=== PATIENT | female | born 1955 | race Caucasian/White ===

== ENCOUNTER → 2020-02-12 | Outpatient (CLI) | payer MEDICARE ==
--- NOTE | 2020-02-12 15:19 | KCIC ---
RIBS RIGHT History: Right anterior rib pain and contusion after a fall 1 week ago Comparison: Chest radiograph November 23, 2019 Findings: 4 views of the right ribs are submitted. The entirety of the left chest was not included. There is again reverse S-shaped curvature of the thoracic spine. There is atherosclerotic calcification near aortic arch. There has been cholecystectomy. No right pneumothorax or dependent pleural fluid is identified. There is some degenerative change of the right glenohumeral articulation. No displaced right rib fracture is identified by radiographs. Impression: 1. No displaced right rib fracture is identified by radiographs. Electronically signed by: Hernandez Urbano MD (02/12/2020 3:16 PM) [facility]
== END | disposition home or self-care (01) ==
LOC: KCIC 10:23
PROVIDERS: ATTEND Nurse Practitioner Family
DX: S20.211A Contusion of right front wall of thorax, initial encounter (principal); W19.XXXA Unspecified fall, initial encounter; Y93.89 Activity, other specified; Y92.89 Other specified places as the place of occurrence of the external cause; Y99.8 Other external cause status; M43.8X4 Other specified deforming dorsopathies, thoracic region; I70.0 Atherosclerosis of aorta; M19.011 Primary osteoarthritis, right shoulder
CPT/HCPCS: 71100

== ENCOUNTER → 2020-03-13 | Outpatient (CLI) | payer MEDICARE ==
--- NOTE | 2020-03-13 09:57 | RAD ---
EXAM: CT Chest without IV contrast INDICATION: Reason: 2-3 mm pulmonary nodule in 2015 / Spl. Instructions: / History: TECHNIQUE: Multi-detector row CT images were acquired from the thoracic inlet through the upper abdomen without the use of IV contrast. Sagittal and coronal images were acquired from the transaxial data. All CT scans performed at this facility utilize dose optimization techniques as appropriate to the exam, including the following: Automated exposure control and adjustment of the mA and/or KV according to patient size (this includes techniques or standardized protocols for targeted exams where dose is indication/reason for exam). COMPARISON: None FINDINGS: The absence of IV contrast limits evaluation of soft tissue pathology. CARDIOVASCULAR: Normal caliber thoracic aorta. Multivessel coronary calcifications. Normal heart size. MEDIASTINUM & CALIXTO: No adenopathy or masses. LUNGS: Centrilobular emphysema is present. 3 mm posterior right upper lobe pulmonary nodule (image 80 of series 3). 2 mm left lower lobe pulmonary nodule (image 142 of series 3). Mild parenchymal scarring in the medial right middle lobe. PLEURAL SPACE: No pleural effusions or pneumothorax. OSSEOUS & SOFT TISSUE: Old anterolateral right fifth and sixth rib fractures. Mild rightward convexity scoliotic curvature of the lower thoracic spine. ABDOMEN: Included upper abdomen shows postoperative changes in the upper gastrointestinal system suggesting previous gastric bypass, and cholecystectomy. IMPRESSION: Sub-5 mm pulmonary nodules in the posterior right upper lobe and in the left lower lobe. No findings suspicious for pulmonary malignancy. Unless the patient is at high risk for lung cancer, additional follow-up of these nodules may not be necessary. However, patient does have centrilobular pattern emphysema. Consider enrollment in a [place] lung cancer screening program if clinically appropriate. Electronically signed by: Madison Gann MD (03/13/2020 9:54 AM) [id number]
== END ==
LOC: CT 09:23
DX: J43.2 Centrilobular emphysema (principal); M35.00 Sjogren syndrome, unspecified; R91.8 Other nonspecific abnormal finding of lung field; Z87.898 Personal history of other specified conditions; Z79.899 Other long term (current) drug therapy
CPT/HCPCS: 71250

== ENCOUNTER → 2020-04-21 | Outpatient (CLI) | payer MEDICARE ==
--- NOTE | 2020-04-21 14:28 | KCIC ---
EXAM: Bilateral digital screening mammogram with tomosynthesis. HISTORY: 65-year-old female presents for screening mammography. TECHNIQUE: Full-field digital craniocaudal and mediolateral oblique 2D and 3D tomosynthesis images of both breasts are obtained for evaluation. Computer aided detection with TelepathD software version 9.3 was applied. COMPARISON: 11/16/2018 BREAST PARENCHYMAL DENSITY: Level A - Mostly fat. FINDINGS: There is no new suspicious mass, microcalcification or region of architectural distortion. There are findings consistent with reduction mammoplasty surgery. There are few benign calcifications. There is a stable small suspected benign oil cyst within the medial left breast. IMPRESSION: BI-RADS Category 2: Benign finding(s). RECOMMENDATION: Annual mammography is recommended. If your mammogram demonstrates that you have dense breast tissue, which could hide abnormalities, and if you have other risk factors for breast cancer that have been identified, you might benefit from supplemental screening tests that may be suggested by your ordering physician. Dense breast tissue, in and of itself, is a relatively common condition. This information is not provided to cause undue concern, but rather to raise your awareness and to promote discussion with your physician regarding the presence of other risk factors, in addition to dense breast tissue. A report of your mammography results will be sent to you and your physician. You should contact your physician if you have any questions or concerns regarding this report. Mammography is a sensitive method for finding small breast cancers, but it does not detect them all and is not a substitute for careful clinical examination. A negative mammogram does not negate a clinically suspicious finding and should not result in delay in biopsying a clinically suspicious abnormality. PQRS compliance statement - Patient information was entered into a reminder system with a target due date for the next mammogram. "Our facility is accredited by the [employer] Mammography Program." Electronically signed by: Nita Early MD (04/21/2020 2:25 PM) [email or web address]
== END | disposition home or self-care (01) ==
LOC: KCIC MAMMO 10:40
PROVIDERS: ATTEND Nurse Practitioner Family
DX: Z12.31 Encounter for screening mammogram for malignant neoplasm of breast (principal); N64.89 Other specified disorders of breast
CPT/HCPCS: 77063; 77067

== ENCOUNTER → 2020-09-04 | Outpatient (CLI) | payer MEDICARE ==
--- NOTE | 2020-09-04 17:31 | KCIC ---
EXAM: CT CHEST WITHOUT CONTRAST HISTORY: Pulmonary nodule COMPARISON: CT chest 03/13/2020 TECHNIQUE: Helical CT of the chest performed without contrast. Coronal and sagittal reformats were o btained. One or more of the following individualized dose reduction techniques were utilized for this examinat ion: 1. Automated exposure control 2. Adjustment of the mA and/or kV according to patient size 3. Use of iterative reconstruction technique. FINDINGS: Thyroid gland and thoracic inlet: Small calcification in the right thyroid lobe. Heart and great vessels: Heart is normal in size. There are coronary artery calcifications. Thoracic aorta is normal caliber mild calcified atherosclerosis. Mediastinum and yrn: No mediastinal or hilar lymphadenopathy. Lungs and pleura: A 6 mm groundglass nodule in the anterior right upper lobe is unchanged (image 45, series 6). 3 mm pulmonary nodule in the posterior right upper lobe is unchanged (image 44, series 6). There is calcified granuloma in the left lower lobe. Additional 2 mm pulmonary nodule in the left lo wer lobe is unchanged (image 90, series 6). No new pulmonary nodule. Mild paraseptal and centrilobula r emphysema. Unchanged mild scarring or atelectasis in the medial right middle lobe. Chest wall and axillae: No axillary lymphadenopathy. Chest wall is unremarkable. Upper abdomen: Surgical changes of gastric bypass and cholecystectomy. Bones: Moderate thoracic scoliosis. No acute osseous abnormality. IMPRESSION: 1. Unchanged 6 mm groundglass nodule in the anterior right upper lobe and 2-3 mm pulmonary nodules i n the posterior right upper lobe and left lower lobe. Optional follow-up CT could be obtained in 2020 ([address]) to ensure stability in a high risk patient. 2. Unchanged mild emphysema. 3. Coronary artery calcifications. Electronically signed by: Laura Zamorano MD (09/04/2020 5:29 PM) [id number]
== END ==
LOC: KCIC CT 10:10
PROVIDERS: ATTEND Internal Medicine Pulmonary Disease
DX: R91.1 Solitary pulmonary nodule (principal); I25.10 Atherosclerotic heart disease of native coronary artery without angina pectoris; J43.9 Emphysema, unspecified; Z90.49 Acquired absence of other specified parts of digestive tract; Z87.891 Personal history of nicotine dependence
CPT/HCPCS: 71250

== ENCOUNTER → 2020-11-06 | Outpatient (CLI) | payer MEDICARE ==
--- NOTE | 2020-11-06 16:32 | RAD ---
US HEAD/NECK SOFT TISSUE History:Reason: Adenopathy; Pain along Bilateral Jaw lines per pt / Spl. Instructions: / History: Comparison: None Technique: Sonographic examination of the bilateral submandibular soft tissues Findings: Small benign-appearing lymph nodes within the submandibular region. No mass or fluid collection. Impression: 1. No ultrasound evidence of abnormality within the region of the patient's palpable concern. Electronically signed by: Naveed Quintero DO (11/06/2020 4:30 PM) [id number]
== END ==
LOC: US 10:23
PROVIDERS: ATTEND Nurse Practitioner Family
DX: R59.1 Generalized enlarged lymph nodes (principal)
CPT/HCPCS: 76536

== ENCOUNTER → 2021-03-02 | Outpatient (CLI) | payer MEDICARE ==
[~2021-03-02] MED LIST: IOHEXOL 240 MG/ML 50ML VIAL. PO ONE; IOHEXOL 300 MG/ML 100ML VIAL. IV ONE
--- NOTE | 2021-03-02 14:34 | RAD ---
EXAM: CT Abdomen with IV contrast CLINICAL HISTORY: Reason: LUQ ABD PAIN / Spl. Instructions: omni 300 75ml omni 240 50ml / History: . COMPARISON: none TECHNIQUE: Helical CT of the abdomen and pelvis was performed following the administration of IV cont rast. Axial, coronal and sagittal reformatted images were generated. ---PQRS compliance statement - One or more of the following individualized dose reduction techniques were utilized for this study: 1. Automated exposure control 2. Adjustment of the mA and/or kV according to patient size 3. Use of iterative reconstruction technique--- FINDINGS: Lower chest: Lung bases are clear. Abdomen: Liver and biliary system: No focal liver lesion. Cholecystectomy clips are seen. No biliary ductal d ilatation. Spleen: Unremarkable Pancreas: Unremarkable Adrenal glands: Unremarkable Kidneys: Symmetric nephrograms. Lymph nodes/retroperitoneum: No abdominal lymphadenopathy. Vessels: Dense aortic calcifications in the infrarenal aorta. Bowel/Peritoneal cavity: Colonic diverticula are seen. No acute diverticulitis. Visualized small and large bowel are normal in caliber. Changes of gastric bypass are seen. No associated abnormal bowel d ilatation. Appendix is normal. No abdominal ascites. Abdominal wall: Trace fat-containing periumbilical hernia is seen. Bones: Degenerative changes of the spine are seen. [Curvature of the lumbar spine. Curvature thoracic spine. IMPRESSION: 1. Changes of gastric bypass without associated bowel obstruction or focal abnormality. 2. Colonic diverticulosis is partially profiled without evidence for acute diverticulitis. 3. Trace fat-containing periumbilical hernia is seen. Electronically signed by: Donald Cutler MD (03/02/2021 2:32 PM) [id number]
== END ==
LOC: CT 08:40
PROVIDERS: ATTEND Nurse Practitioner Family
DX: K57.30 Diverticulosis of large intestine without perforation or abscess without bleeding (principal); I70.0 Atherosclerosis of aorta; M43.8X5 Other specified deforming dorsopathies, thoracolumbar region; M47.816 Spondylosis without myelopathy or radiculopathy, lumbar region; Z90.49 Acquired absence of other specified parts of digestive tract
CPT/HCPCS: 74160; Q9966; Q9967

== ENCOUNTER → 2021-03-29 | Outpatient (CLI) | payer MEDICARE ==
--- NOTE | 2021-03-29 09:00 | KCIC ---
EXAM: Chest CT without intravenous contrast. HISTORY: Pulmonary nodules. Cigarette smoking. TECHNIQUE: Computed tomographic images of the chest were obtained without contrast. Multiplanar refor matting was performed. *One or more of the following individualized dose reduction techniques were utilized for this examina tion: 1. Automated exposure control. 2. Adjustment of the mA and/or kV according to patient size. 3. Use of iterative reconstruction technique. COMPARISON: 09/04/2020 and 03/13/2020. FINDINGS: The heart is normal in size. The aorta is normal in caliber. There is calcified atheroscler otic plaque involving the coronary arteries. There is a right thyroid calcification without convincin g nodule. There are benign-appearing mediastinal and hilar lymph nodes. There is no pneumothorax or pleural effusion. There is a 6 mm groundglass nodular opacity within the anterior right upper lobe (series 6, image 56). There is a 5 mm nodule within the posterior right upp er lobe (series 6, image 60). There is a 2 mm nodule within the right upper lobe (series 6, image 68) . The previously described 2 mm nodule within the left lower lobe is not conspicuous on the current e xam. There is scarring or atelectasis within the anterior medial right middle lobe along the horizontal fi ssure. There is a calcified granuloma within the left lower lobe. There are postoperative changes inv olving the stomach. The gallbladder is surgically absent. There are degenerative changes involving th e spine. There is no acute or suspicious osseous lesion. IMPRESSION: 1. Right-sided pulmonary nodules, the largest of which is a 6 mm groundglass nodule within the right upper lobe. These are noted partially changed compared to the prior exam, allowing for differences in slice position and volume averaging. Follow-up can be performed in one year to confirm longer-term s tability. 2. Mild emphysema. Electronically signed by: Nita Early MD (03/29/2021 8:58 AM) [id number]
== END ==
LOC: KCIC CT 08:08
PROVIDERS: ATTEND Internal Medicine Critical Care Medicine
DX: R91.8 Other nonspecific abnormal finding of lung field (principal); J84.10 Pulmonary fibrosis, unspecified; J43.9 Emphysema, unspecified; I25.10 Atherosclerotic heart disease of native coronary artery without angina pectoris; M47.814 Spondylosis without myelopathy or radiculopathy, thoracic region; Z98.890 Other specified postprocedural states
CPT/HCPCS: 71250

== ENCOUNTER 2021-04-21 20:14 | Emergency (ER) | payer MEDICARE ==
[~2021-04-21] VITALS: Ht 154.9 cm; Wt 98.6 kg
[2021-04-21] MEDS ORDERED: ASPIRIN CHEWABLE 81 MG TABLET. PO ONE (23:30)
[2021-04-21] MEDS ORDERED: fentaNYL PF VIAL 100 MCG/2 ML VIAL IVP ONE (23:30)
--- NOTE | 2021-04-21 23:32 | ED.ADGEN ---
Past Medical History Past Surgical History: Cholecystectomy, Gastric Bypass, Hysterectomy, Tonsillectomy, Other Additional Past Surgical Histo: BREAST REDUCTION General Adult EDM: Chief Complaint: CHEST PAIN HPI: HPI: Patient is a 66 year old female coming from a sleep study in this hospital for left-sided sharp chest pain. Patient states the pain 3 to 4 days ago, denies any trauma or heavy lifting. Patient describes the pain as sharp and is worse with taking a deep breath, movement, and palpation. Patient has had similar pain in the past and her primary care provider diagnosed her with costochondritis. Patient has a history of Sjogren's in fibromyalgia, does not take anything for pain. Patient has any past cardiac history, dyspnea on exertion, or lower extremity edema. Patient has had both of her COVID-19 vaccines and her booster. Review of Systems: Review of Systems: All other systems within normal limits except for as noted in the HPI Current Medications: Current Medications Medications (Trade) Dose Ordered Sig/Brennan Start Time Stop Time Status Last Admin Dose Admin Aspirin (Aspirin Chewable) 324 mg 1X ONCE 04/21/21 23:30 04/21/21 23:33 DC 04/22/21 00:11 324 MG Fentanyl Citrate (Fentanyl 2ml Vial) 75 mcg 1X ONCE 04/21/21 23:30 04/21/21 23:33 DC 04/22/21 00:12 75 MCG Allergies: Allergies: Allergies Coded Allergies Type Severity Reaction Last Updated Verified Sulfa (Sulfonamide Antibiotics) Allergy Intermediate 03/02/21 Yes Physical Exam: PE: Constitutional: Well developed, well nourished, no acute distress, non-toxic appearance. [] HENT: Normocephalic, atraumatic, bilateral external ears normal, nose normal. [] Eyes: PERRLA, conjunctiva normal, no discharge. [] Neck: No rigidity, supple, no stridor. [] Cardiovascular: Regular rate and rhythm, brisk cap refill. Chest pain reproducible palpation over left anterior mid chest wall, no crepitus or deformity. [] Lungs & Thorax: Non labored symmetric respirations, no tachypnea or respiratory distress [] Abdomen: Soft, nondistended. Skin: Warm, dry, no erythema, no rash. [] Back: Unremarkable Extremities: No deformities, range of motion grossly intact, no lower extremity edema [] Neurologic: Alert and oriented X 3, no focal deficits noted. [] Psychologic: Affect normal, judgement normal, mood normal. [] Current Patient Data: Labs: Laboratory Tests Test 04/22/21 00:06 White Blood Count 6.2 x10^3/uL (4.0-11.0) Red Blood Count 4.57 x10^6/uL (3.50-5.40) Hemoglobin 13.5 g/dL (12.0-15.5) Hematocrit 40.5 % (36.0-47.0) Mean Corpuscular Volume 89 fL (79-100) Mean Corpuscular Hemoglobin 29 pg (25-35) Mean Corpuscular Hemoglobin Concent 33 g/dL (31-37) Red Cell Distribution Width 13.1 % (11.5-14.5) Platelet Count 239 x10^3/uL (140-400) Neutrophils (%) (Auto) 63 % (31-73) Lymphocytes (%) (Auto) 25 % (24-48) Monocytes (%) (Auto) 9 % (0-9) Eosinophils (%) (Auto) 3 % (0-3) Basophils (%) (Auto) 1 % (0-3) Neutrophils # (Auto) 3.9 x10^3/uL (1.8-7.7) Lymphocytes # (Auto) 1.6 x10^3/uL (1.0-4.8) Monocytes # (Auto) 0.6 x10^3/uL (0.0-1.1) Eosinophils # (Auto) 0.2 x10^3/uL (0.0-0.7) Basophils # (Auto) 0.0 x10^3/uL (0.0-0.2) Sodium Level 139 mmol/L (136-145) Potassium Level 4.1 mmol/L (3.5-5.1) Chloride Level 104 mmol/L (98-107) Carbon Dioxide Level 32 mmol/L (21-32) Anion Gap 3 (6-14) L Blood Urea Nitrogen 10 mg/dL (7-20) Creatinine 0.8 mg/dL (0.6-1.0) Estimated GFR (Cockcroft-Gault) 72.2 BUN/Creatinine Ratio 13 (6-20) Glucose Level 95 mg/dL (70-99) Calcium Level 9.2 mg/dL (8.5-10.1) Total Bilirubin 0.3 mg/dL (0.2-1.0) Aspartate Amino Transferase (AST) 7 U/L (15-37) L Alanine Aminotransferase (ALT) 11 U/L (14-59) L Alkaline Phosphatase 116 U/L (46-116) Troponin I Quantitative < 0.017 ng/mL (0.000-0.055) LA-Ggb-O-Type Natriuretic Peptide 61 pg/mL (0-124) Total Protein 7.6 g/dL (6.4-8.2) Albumin 3.5 g/dL (3.4-5.0) Albumin/Globulin Ratio 0.9 (1.0-1.7) L Laboratory Tests 04/22/21 00:06 Laboratory Tests 04/22/21 00:06 Vital Signs: Vital Signs Date Time Temp Pulse Resp B/P (MAP) Pulse Ox O2 Delivery O2 Flow Rate FiO2 04/22/21 00:15 66 18 139/85 (103) 96 Room Air 04/21/21 20:40 97.9 97.9 EKG: EKG: [] Sinus rhythm, heart rate 80 bpm, left axis deviation, no ST elevation or depr ession Heart Score: C/O Chest Pain: Yes HEART Score for Chest Pain: HEART Score for Chest Pain Response (Comments) Value History Slighlty/Non-Suspicious 0 ECG Nonspecific Repolarizatio 1 Age >45 - < 65 1 Risk Factors 1 or 2 Risk Factors 1 Troponin < Normal Limit 0 Total 3 Risk Factors: Risk Factors: DM, Current or recent (<one month) smoker, HTN, HLP, family history of CAD, obesity. Risk Scores: Score 0 - 3: 2.5% MACE over next 6 weeks - Discharge Home Score 4 - 6: 20.3% MACE over next 6 weeks - Admit for Clinical Observation Score 7 - 10: 72.7% MACE over next 6 weeks - Early Invasive Strategies Radiology/Procedures: Radiology/Procedures: [facility] [address] [place] [address] IMAGING REPORT Signed PATIENT: CARA KELLOGG ACCOUNT: [id number] : 1955 LOCATION: ER AGE: 66 SEX: F EXAM STATUS: REG ER ORD. PHYSICIAN: PAKO CARVAJAL MD REASON: chest pain PROCEDURE: CHEST PA & LATERAL Chest, PA and Lateral: Technique: PA and lateral views of the chest were obtained. History: Chest pain. Comparison: None. Findings: The heart and pulmonary vasculature appear within normal limits. The lungs are clear. The pleural margins are clear. Impression: No acute chest process is seen. Electronically signed by: Yasir Stringer MD (04/21/2021 11:51 PM) [id number] DICTATED and SIGNED BY: YASIR STRINGER MD DATE: 04/21/21 [id number] [] Course & Med Decision Making: Course & Med Decision Making Pertinent Labs and Imaging studies reviewed. (See chart for details) [] Work-up unremarkable with undetectable troponin after 4 days of symptoms. History and physical exam consistent with costochondritis. She was getting prescribed Naprosyn but patient states she has a gastric bypass and cannot have NSAIDs. Haim Disclaimer: Haim Disclaimer: This electronic medical record was generated, in whole or in part, using a voice recognition dictation system. Departure Departure Impression: Primary Impression: Costochondral chest pain Disposition: 01 HOME / SELF CARE / HOMELESS Condition: STABLE Referrals: LORE SGEUNDO APRN (PCP) Patient Instructions: Chest Pain (Nonspecific), Costochondritis Scripts Hydrocodone Bit/Acetaminophen (HYDROCODONE-APAP 5-325 ) 1 Tab Tablet 1 TAB PO PRN Q6HRS PRN for PAIN for 3 Days, #12 TAB 0 Refills Prov: PAKO CARVAJAL MD 04/22/21 PAKO CARVAJAL MD Apr 21, 2021 23:32
--- NOTE | 2021-04-21 23:53 | RAD ---
Chest, PA and Lateral: Technique: PA and lateral views of the chest were obtained. History: Chest pain. Comparison: None. Findings: The heart and pulmonary vasculature appear within normal limits. The lungs are clear. The pleural ma rgins are clear. Impression: No acute chest process is seen. Electronically signed by: Yasir Stringer MD (04/21/2021 11:51 PM) [id number]
[2021-04-22 00:16] LABS: BASO % 1 % (0-3); EOS # 0.2 x10^3/uL (0.0-0.7); EOS % 3 % (0-3); HEMATOCRIT 40.5 % (36.0-47.0); HEMOGLOBIN 13.5 g/dL (12.0-15.5); LYMPH # 1.6 x10^3/uL (1.0-4.8); LYMPH % 25 % (24-48); MEAN CORPUSCULAR HEMOGLOBIN 29 pg (25-35); MEAN CORPUSCULAR HGB CONC 33 g/dL (31-37); MEAN CORPUSCULAR VOLUME 89 fL (79-100); MONO # 0.6 x10^3/uL (0.0-1.1); MONO % 9 % (0-9); NEUT # 3.9 x10^3/uL (1.8-7.7); NEUT % 63 % (31-73); PLATELET COUNT 239 x10^3/uL (140-400); RED BLOOD COUNT 4.57 x10^6/uL (3.50-5.40); RED CELL DISTRIBUTION WIDTH 13.1 % (11.5-14.5); WHITE BLOOD COUNT 6.2 x10^3/uL (4.0-11.0)
[2021-04-22 00:23] LABS: CALCIUM 9.2 mg/dL (8.5-10.1); CREATININE 0.8 mg/dL (0.6-1.0); GFR 72.2; POTASSIUM 4.1 mmol/L (3.5-5.1)
[2021-04-22 00:29] LABS: ALBUMIN 3.5 g/dL (3.4-5.0); ALBUMIN/GLOBULIN RATIO 0.9 (1.0-1.7); TOTAL BILIRUBIN 0.3 mg/dL (0.2-1.0); TOTAL PROTEIN 7.6 g/dL (6.4-8.2)
[2021-04-22] MEDS ORDERED: NAPR-683 PO (00:34)
[2021-04-22] MEDS ORDERED: HYDR-2761 PO (00:44)
[2021-04-22 00:45] VITALS: BP 108/67
[2021-04-22] MEDS ORDERED: HYDROcodone/APAP 5/325MG 1 TAB TABLET PO ONE (01:00)
--- NOTE | 2021-04-22 05:59 | EKG ---
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
== END 2021-04-22 01:00 | disposition home or self-care (01) ==
LOC: ER 20:14
DX: R07.89 Other chest pain (principal); Z88.2 Allergy status to sulfonamides
CPT/HCPCS: 36415; 71046; 80053; 83880; 84484; 85025; 93005; 96374; 99285; J3010

== ENCOUNTER → 2021-04-26 | Outpatient (CLI) | payer MEDICARE ==
[2021-04-22 00:45] VITALS: BP 108/67
[~2021-04-26] MED LIST changes: +HYDR-2761 PO; -IOHEXOL 240 MG/ML 50ML VIAL. PO ONE; -IOHEXOL 300 MG/ML 100ML VIAL. IV ONE; +NAPR-683 PO
--- NOTE | 2021-04-26 16:38 | KCIC ---
Bilateral digital screening mammograms with 3-D tomosynthesis: Reason for examination: Routine screening. History of bilateral breast reduction. Comparison is made to previous studies dated back to 08/11/2015. Bilateral mammograms in CC and oblique projections were obtained with 2-D imaging and 3-D tomosynthes is imaging on a Siemens Inspiration unit and reviewed on the workstation. Interpretation was made wit h the benefit of CAD. The skin and nipples show no abnormalities. No abnormal axillary lymph nodes are seen. The breast par enchyma is predominantly fatty. (Breast density: Category A.) There are postop changes from breast re duction. There are no dominant masses, suspicious calcifications or architectural distortion. Benign calcifications are present. Impression: No evidence of malignancy. Recommend routine screening. BI-RAD Category 2: Benign. "Our facility is accredited by the [employer] Mammography Program." This patient's information has been entered into a reminder system for the patient to be notified wit h the results of her examination and a target date for the next mammogram. Electronically signed by: Lara Boucher MD (04/26/2021 4:35 PM) [email or web address]
== END ==
LOC: KCIC MAMMO 13:22
PROVIDERS: ATTEND Nurse Practitioner Family
DX: Z12.31 Encounter for screening mammogram for malignant neoplasm of breast (principal)
CPT/HCPCS: 77063; 77067

== ENCOUNTER → 2021-05-11 | Outpatient (CLI) | payer MEDICARE ==
[2021-04-22 00:45] VITALS: BP 108/67
--- NOTE | 2021-05-12 14:39 | SLEEP ---
DATE OF STUDY: 05/11/2021 POLYSOMNOGRAM OBJECTIVE: The patient is a 66-year-old female previously on CPAP, who is having excessive somnolence. Height 5 feet 1 inch, weight 206 pounds, body mass index 39. [place] sleep score 9. INTERPRETATION: Sleep architecture is characterized by sleep efficiency of 89% across 9.5 hours of recording time. Stage volumes are appropriate for age. Sleep onset latency is 24 minutes. Overall, respiratory monitoring shows 71 events for an apnea-hypopnea index of 8.4 events per hour of sleep. Pretreatment, the apnea-hypopnea index was 13.6 events per hour of sleep. The patient is established on CPAP and at a setting of 9 cm, apnea-hypopnea index is 1.4 events per hour of sleep. The minimum oxygen saturation is 83%. Periodic limb movements of sleep occur at the rate of 4 per hour, 0 per hour associated with arousal. No cardiac arrhythmias observed. IMPRESSION: Abnormal polysomnogram showing obstructive sleep apnea-hypopnea, which should be treatable on 9 cm of CPAP, requiring oxygen 1-2 liters a minute, bled in using a ResMed AirFit N30 nasal cushion medium size with chin strap. RECOMMENDATIONS: 1. The patient should be established on the CPAP setting. 2. She should avoid sedatives and alcohol and pursue weight loss. Thank you letting us to help with the patient's care. BILL/JAYLEN DR: David TID: [id number] CC: SHANE ROME MD, LORE SEGUNDO APRN
== END ==
LOC: SLPLAB 19:00
PROVIDERS: ATTEND Internal Medicine Pulmonary Disease
DX: G47.33 Obstructive sleep apnea (adult) (pediatric) (principal)
CPT/HCPCS: 95810

== ENCOUNTER → 2021-08-30 | Outpatient (CLI) | payer MEDICARE ==
--- NOTE | 2021-08-30 09:21 | KCIC ---
EXAM: Chest CT without intravenous contrast. HISTORY: Pulmonary nodule. TECHNIQUE: Computed tomographic images of the chest were obtained without contrast. Multiplanar refor matting was performed. *One or more of the following individualized dose reduction techniques were utilized for this examina tion: 1. Automated exposure control. 2. Adjustment of the mA and/or kV according to patient size. 3. Use of iterative reconstruction technique. COMPARISON: 03/29/2021, 09/04/2020, 03/13/2020. FINDINGS: The heart is normal in size. The aorta is normal in caliber. There is calcified atheroscler otic plaque involving the aorta and coronary arteries. No pathologically enlarged mediastinal or yrn r lymph node is seen. There is a small calcification within the right thyroid lobe. No discrete thyro id nodule is seen. There is no pneumothorax or pleural effusion. There is mild emphysema. There is scarring within the m edial right middle lobe. There is also mild scarring or atelectasis within the lingula. There is a 7 mm groundglass nodule within the anterior right upper lobe (series 3, image 46). There i s a 4 mm semisolid nodule within the posterior right upper lobe (series 3, image 45). There is a 7 mm nodule within the right middle lobe along the minor fissure, likely a fissural lymph node. There is a 3 mm groundglass nodule at the right lung base (series 3, image 128). There is a 3 mm nodule within the left lower lobe (series 3, image 92). There is a calcified granuloma within the left lower lobe. There are postoperative changes involving the stomach. The gallbladder is absent. There is a small sp lenule along the anterior spleen. There is also splenule along the tail the pancreas. The adrenal gla nds are unremarkable. There is no acute or suspicious osseous finding. IMPRESSION: 1. Multiple pulmonary nodules, the largest of which measure 7 mm and are stable compared to prior guillermina dies when allowing for differences in slice position and volume averaging. Continued follow-up can be performed in one year to confirm a greater than two-year course of stability. 2. Emphysema. 3. No acute finding. Electronically signed by: Nita Early MD (08/30/2021 9:19 AM) [id number]
== END ==
LOC: KCIC CT 08:14
PROVIDERS: ATTEND Internal Medicine Pulmonary Disease
DX: R91.8 Other nonspecific abnormal finding of lung field (principal); I25.10 Atherosclerotic heart disease of native coronary artery without angina pectoris; J84.10 Pulmonary fibrosis, unspecified; J43.9 Emphysema, unspecified; J98.4 Other disorders of lung
CPT/HCPCS: 71250

== ENCOUNTER → 2021-09-13 | Outpatient (CLI) | payer MEDICARE ==
--- NOTE | 2021-09-13 13:02 | KCIC ---
EXAM: Chest, 2 views. HISTORY: Cough. COMPARISON: 04/21/2021 FINDINGS: 2 views of the chest are obtained. There is no infiltrate, the heart is normal in size. IMPRESSION: No acute pulmonary finding. Electronically signed by: Nita Early MD (09/13/2021 1:00 PM) [id number]
== END ==
LOC: KCIC 11:35
PROVIDERS: ATTEND Family Medicine
DX: R05.1 Acute cough (principal)
CPT/HCPCS: 71046

== ENCOUNTER → 2021-09-24 | Outpatient (CLI) | payer MEDICARE ==
--- NOTE | 2021-09-24 13:05 | RAD ---
EXAM: Chest, 2 views. HISTORY: COPD. COMPARISON: 09/13/2021 FINDINGS: 2 views of the chest are obtained. There is no infiltrate, pleural effusion or pneumothorax . The heart is normal in size. There is thoracolumbar scoliosis. There are cholecystectomy clips. IMPRESSION: No acute pulmonary finding. Electronically signed by: Nita Early MD (09/24/2021 1:03 PM) [id number]
== END ==
LOC: RAD 12:09
PROVIDERS: ATTEND Internal Medicine Pulmonary Disease
DX: J44.9 Chronic obstructive pulmonary disease, unspecified (principal); M41.85 Other forms of scoliosis, thoracolumbar region; Z90.49 Acquired absence of other specified parts of digestive tract
CPT/HCPCS: 71046

== ENCOUNTER → 2021-10-20 | Outpatient (CLI) | payer MEDICARE ==
--- NOTE | 2021-10-20 15:44 | KCIC ---
EXAM: Chest, 2 views. HISTORY: Shortness of air. Fatigue. COMPARISON: 09/24/2021 FINDINGS: 2 views of the chest are obtained. There is no infiltrate, pleural effusion or pneumothorax . The heart is normal in size. IMPRESSION: No acute pulmonary finding. Electronically signed by: Nita Early MD (10/20/2021 3:42 PM) [id number]
== END ==
LOC: KCIC 15:22
PROVIDERS: ATTEND Internal Medicine Critical Care Medicine
DX: R06.02 Shortness of breath (principal); R53.83 Other fatigue; Z86.16 Personal history of COVID-19
CPT/HCPCS: 71046

== ENCOUNTER → 2021-10-25 | Outpatient (CLI) | payer MEDICARE ==
[~2021-10-25] MED LIST changes: +CONTRAST GIVEN. MC PRN; +IOHEXOL 300 MG/ML 100ML VIAL. IV ONE
--- NOTE | 2021-10-25 10:24 | KCIC ---
EXAMINATION: CTA CHEST CLINICAL HISTORY: Chest pain, elevated D-dimer, hx. COVID. Technique: Spiral CT acquisition of the chest from the thoracic inlet to the upper abdomen following IV contrast with coronal and sagittal reformatted images also provided for review. 3D maximum intensi ty projection images also performed. CT Dose Reduction Employed: One or more of the following individualized dose reduction techniques wer e utilized for this examination: 1. Automated exposure control 2. Adjustment of the mA and/or kV ac cording to patient size 3. Use of iterative reconstruction technique. COMPARISON: Chest radiograph 10/20/2021, CT chest 08/30/2021 FINDINGS: Pulmonary Vasculature: No evidence of main, lobar, or segmental pulmonary arterial thrombus. Lung Parenchyma, Pleura, and Airways: No focal consolidation. Mild dependent subsegmental atelectasis bilaterally. Several bilateral pulmonary nodules, essentially unchanged. Old calcified granuloma lef t lower lobe. No pleural effusion. Central airways patent. Lower Neck, Lymph Nodes, and Mediastinum: Small calcification in the inferior right thyroid lobe, sim ilar to prior study. No discrete thyroid nodule definitively visualized. No mediastinal, hilar, or ax illary lymphadenopathy. Heart, Pericardium, and Thoracic Vessels: Cardiac chambers normal in size. No pericardial effusion. M ild aortic atherosclerotic calcification without aneurysm. Moderate coronary atherosclerotic calcific ation, incompletely evaluated. Bones and Soft Tissues: Multilevel degenerative changes in the thoracic spine with mild to moderate d extroconvex curvature. Upper Abdomen: Bariatric postoperative changes. IMPRESSION: No evidence of main, lobar, or segmental pulmonary embolism. Electronically signed by: Josr Kumar DO (10/25/2021 10:22 AM) JEN
== END ==
LOC: KCIC CT 09:14
PROVIDERS: ATTEND Internal Medicine Critical Care Medicine
DX: R91.8 Other nonspecific abnormal finding of lung field (principal); J98.11 Atelectasis; I25.10 Atherosclerotic heart disease of native coronary artery without angina pectoris; I70.0 Atherosclerosis of aorta; M47.814 Spondylosis without myelopathy or radiculopathy, thoracic region; M43.8X4 Other specified deforming dorsopathies, thoracic region; Z98.890 Other specified postprocedural states
CPT/HCPCS: 71275; Q9967

== ENCOUNTER 2021-12-20 10:02 | Inpatient (IN) | payer MEDICARE ==
[~2021-12-20] VITALS: Ht 154.9 cm; Wt 97.0 kg
[~2021-12-20 10:02] MED LIST changes: -CONTRAST GIVEN. MC PRN; -IOHEXOL 300 MG/ML 100ML VIAL. IV ONE
[2021-12-20 11:20] LABS: CALCIUM 8.7 mg/dL (8.5-10.1); CREATININE 0.8 mg/dL (0.6-1.0); GFR 72.2; POTASSIUM 4.5 mmol/L (3.5-5.1)
[2021-12-20 11:21] LABS: BASO % 0 % (0-3); EOS # 0.1 x10^3/uL (0.0-0.7); EOS % 2 % (0-3); HEMATOCRIT 36.6 % (36.0-47.0); HEMOGLOBIN 11.9 g/dL (12.0-15.5); LYMPH # 0.9 x10^3/uL (1.0-4.8); LYMPH % 20 % (24-48); MEAN CORPUSCULAR HEMOGLOBIN 29 pg (25-35); MEAN CORPUSCULAR HGB CONC 33 g/dL (31-37); MEAN CORPUSCULAR VOLUME 88 fL (79-100); MONO # 0.3 x10^3/uL (0.0-1.1); MONO % 7 % (0-9); NEUT # 3.3 x10^3/uL (1.8-7.7); NEUT % 71 % (31-73); PLATELET COUNT 230 x10^3/uL (140-400); RED BLOOD COUNT 4.14 x10^6/uL (3.50-5.40); RED CELL DISTRIBUTION WIDTH 14.2 % (11.5-14.5); WHITE BLOOD COUNT 4.7 x10^3/uL (4.0-11.0)
[2021-12-20 11:26] LABS: ALBUMIN 3.4 g/dL (3.4-5.0); ALBUMIN/GLOBULIN RATIO 1.1 (1.0-1.7); TOTAL BILIRUBIN 0.3 mg/dL (0.2-1.0); TOTAL PROTEIN 6.5 g/dL (6.4-8.2)
[2021-12-20] MEDS ORDERED: fentaNYL PF VIAL 100 MCG/2 ML VIAL IVP ONE ×2 (11:30→14:15)
[2021-12-20] MEDS ORDERED: IV NORMAL SALINE 500ML BAG 500 ML IV ONE (11:45)
--- NOTE | 2021-12-20 12:06 | PHYS DOC ---
Past Medical History Past Surgical History: No Surgical History Additional Past Surgical Histo: BREAST REDUCTION Smoking Status: Never Smoker Alcohol Use: None General Adult EDM: Chief Complaint: ABDOMINAL PAIN HPI: HPI: Patient is a 66 year old female who presents with left lower quadrant pain that she rates a 10 out of 10 that is worsening, sharp and cramping and even worse with movement with mucousy stool since . Denies nausea, vomiting, diarrhea, fever, back pain, chest pain, shortness of air, numbness or tingling denies blood in stool, denies blood in urine. She states she is also been having more urinary frequency. She is a history of diverticulitis, COVID and COPD. She states that she should be wearing oxygen but does not usually. Review of Systems: Review of Systems: Constitutional: Denies fever or chills. [] Eyes: Denies change in visual acuity. [] HENT: Denies nasal congestion or sore throat. [] Respiratory: Denies cough or shortness of breath. [] Cardiovascular: Denies chest pain or edema. [] GI: +abdominal pain, denies nausea, vomiting, bloody stools or diarrhea. + Mucousy stools [] : Denies dysuria. [] Musculoskeletal: Denies back pain or joint pain. [] Integument: Denies rash. [] Neurologic: Denies headache, focal weakness or sensory changes. [] Endocrine: Denies polyuria or polydipsia. [] Lymphatic: Denies swollen glands. [] Psychiatric: Denies depression or anxiety. [] Heart Score: C/O Chest Pain: No Current Medications: Current Medications Medications (Trade) Dose Ordered Sig/Brennan Start Time Stop Time Status Last Admin Dose Admin Fentanyl Citrate (Fentanyl 2ml Vial) 50 mcg 1X ONCE 12/20/21 11:30 12/20/21 11:31 DC 12/20/21 11:49 50 MCG Sodium Chloride 500 ml @ 500 mls/hr 1X ONCE 12/20/21 11:45 12/20/21 12:44 12/20/21 11:45 500 MLS/HR Allergies: Allergies: Allergies Coded Allergies Type Severity Reaction Last Updated Verified Sulfa (Sulfonamide Antibiotics) Allergy Intermediate 03/02/21 Yes Physical Exam: PE: Constitutional: Well developed, well nourished, no acute distress, non-toxic appearance. [] HENT: Normocephalic, atraumatic, bilateral external ears normal, oropharynx mois t, no oral exudates, nose normal. [] Eyes: PERRLA, EOMI, conjunctiva normal, no discharge. [] Neck: Normal range of motion, no tenderness, supple, no stridor. [] Cardiovascular:Heart rate regular rhythm, no murmur [] Lungs & Thorax: Bilateral breath sounds clear to auscultation [] Abdomen: Bowel sounds normal, soft, no tenderness, no masses, no pulsatile masses. [] Skin: Warm, dry, no erythema, no rash. [] Back: No tenderness, no CVA tenderness. [] Extremities: No tenderness, no cyanosis, no clubbing, ROM intact, no edema. [] Neurologic: Alert and oriented X 3, normal motor function, normal sensory function, no focal deficits noted. [] Psychologic: Affect normal, judgement normal, mood normal. [] Current Patient Data: Labs: Laboratory Tests Test 12/20/21 10:57 White Blood Count 4.7 x10^3/uL (4.0-11.0) Red Blood Count 4.14 x10^6/uL (3.50-5.40) Hemoglobin 11.9 g/dL (12.0-15.5) L Hematocrit 36.6 % (36.0-47.0) Mean Corpuscular Volume 88 fL (79-100) Mean Corpuscular Hemoglobin 29 pg (25-35) Mean Corpuscular Hemoglobin Concent 33 g/dL (31-37) Red Cell Distribution Width 14.2 % (11.5-14.5) Platelet Count 230 x10^3/uL (140-400) Neutrophils (%) (Auto) 71 % (31-73) Lymphocytes (%) (Auto) 20 % (24-48) L Monocytes (%) (Auto) 7 % (0-9) Eosinophils (%) (Auto) 2 % (0-3) Basophils (%) (Auto) 0 % (0-3) Neutrophils # (Auto) 3.3 x10^3/uL (1.8-7.7) Lymphocytes # (Auto) 0.9 x10^3/uL (1.0-4.8) L Monocytes # (Auto) 0.3 x10^3/uL (0.0-1.1) Eosinophils # (Auto) 0.1 x10^3/uL (0.0-0.7) Basophils # (Auto) 0.0 x10^3/uL (0.0-0.2) Sodium Level 143 mmol/L (136-145) Potassium Level 4.5 mmol/L (3.5-5.1) Chloride Level 106 mmol/L (98-107) Carbon Dioxide Level 28 mmol/L (21-32) Anion Gap 9 (6-14) Blood Urea Nitrogen 11 mg/dL (7-20) Creatinine 0.8 mg/dL (0.6-1.0) Estimated GFR (Cockcroft-Gault) 72.2 BUN/Creatinine Ratio 14 (6-20) Glucose Level 89 mg/dL (70-99) Calcium Level 8.7 mg/dL (8.5-10.1) Total Bilirubin 0.3 mg/dL (0.2-1.0) Aspartate Amino Transferase (AST) 16 U/L (15-37) Alanine Aminotransferase (ALT) 16 U/L (14-59) Alkaline Phosphatase 104 U/L (46-116) Troponin I High Sensitivity 7 ng/L (4-50) Total Protein 6.5 g/dL (6.4-8.2) Albumin 3.4 g/dL (3.4-5.0) Albumin/Globulin Ratio 1.1 (1.0-1.7) Lipase 76 U/L (73-393) Laboratory Tests 12/20/21 10:57 Laboratory Tests 12/20/21 10:57 Vital Signs: Vital Signs Date Time Temp Pulse Resp B/P (MAP) Pulse Ox O2 Delivery O2 Flow Rate FiO2 12/20/21 11:49 97 Room Air 12/20/21 10:31 98.0 96 20 145/59 (87) 2.0 98.0 EKG: EK and read by Dr. Massey as a sinus rhythm but no STEMI [] Radiology/Procedures: Radiology/Procedures: [] Course & Med Decision Making: Course & Med Decision Making Pertinent Labs and Imaging studies reviewed. (See chart for details) See HPI. Alert and oriented x4. Ambulatory with a steady gait. Skin pink warm and dry. Left lower quadrant tenderness with palpation. No CVA tenderness. Speaks in full clear sentences. Afebrile. Blood generally unremarkable. Urine does not show infection. CT hard read as per note by radiology shows acute uncomplicated sigmoid diverticulitis. Patient is in severe pain as needed IV pain medication and nausea medication. Due to her age and severity of pain patient will be brought into the hospital for IV antibiotic and pain control. Patient states she had tried to get into her primary care physician but they were booked and she is unable to get in. [] Premon Disclaimer: Haim Disclaimer: This electronic medical record was generated, in whole or in part, using a voice recognition dictation system. Departure Departure Impression: Primary Impression: Diverticulitis Disposition: ADMITTED INPATIENT Admitting Physician: MORIAH Condition: STABLE Referrals: TOMMY PERKINS (PCP) RADHA MORAES ELECTRONIC SPECIALIST December 20, 2021 12:06
[2021-12-20 12:08] LABS: BARBITURATES NEG (NEG); BENZODIAZEPINES NEG (NEG); CANNABINOIDS NEG (NEG); COCAINE NEG (NEG); METHADONE NEG (NEG); OPIATES NEG (NEG); PHENCYCLIDINE NEG (NEG)
[2021-12-20 12:09] LABS: AMPHETAMINE/METHAMPHETAMINE NEG (NEG)
[2021-12-20] MEDS ORDERED: CONTRAST GIVEN. MC PRN (12:15)
[2021-12-20] MEDS ORDERED: IOHEXOL 300 MG/ML 100ML VIAL. IV ONE (12:15)
[2021-12-20 12:27] LABS: BACTERIA,URINE MODERATE /HPF (0-FEW); RBC,URINE 0 /HPF (0-2)
[2021-12-20] MEDS ORDERED: ONDANSETRON PF 4 MG/2 ML VIAL. IVP ONE (14:15)
[2021-12-20] MEDS ORDERED: PIPERACILLIN/TAZOBACTAM 3.375 GM in IV NORMAL SALINE 50ML 50 ML IV ONE (14:30)
--- NOTE | 2021-12-20 15:34 | PDOC2 ---
GI CONSULT Date of Service: DATE: 12/20/21 TIME: 15:33 Reason For Consult: diverticulitis HPI: HPI: Pleasant 66 y/o female seen in ER. Ill x 4-5 days w/ LLQ crampy pain associated w/ "firm soft mucousy" stools. CT report pending but discussion in chart suggests this revealed uncomplicated s igmoid diverticulitis. Similar but less-severe symptoms in the past - believes she has been treated w/ atbx for diverticulitis, never hospitalized. Sometimes has heartburn/indigestion. Took pantoprazole in the past which worked well but ran out. H/o Sjogren's - describes dry mouth and some difficulty swallowing unless she drinks a lot of liquid - this is stable/unchanged. No n/v or bleeding. Typically has loose stools, sometimes urgent. Not unusual to have crampy abdominal pain - has hyoscyamine at home but that didn't work this time. Unclear timing of previous EGD. Possible "ulcer" years ago. S/p gastric bypass ("just the regular gastric bypass") at [facility] in 01/2019. Has lost 90 pounds. Has had more than one colonoscopy - most recent attempt was ~10 years ago in [place], apparently incomplete exam - unable to pass w/ pediatric scope. Did have barium enema at some point. S/p cholecystectomy (for stones). Denies liver and pancreas history. No NSAIDs. PMH: PMH: ANGEL, COPD, COVID, Sjgren's, fibromyalgia gastric bypass, cholecystectomy, breast reduction, hysterectomy, tonsillectomy, ?lymph node dissection FH: Family History: No pertinent hx (no GI cancers) Social History: Smoke: Quit ALCOHOL: rare Drugs: None ROS: GEN: Denies fevers, chills, sweats HEENT: +dry mouth CV: Denies chest pain RESP: +needs O2 since COVID 08/2021 GI: Per HPI : +incontinence ENDO: +weight loss since gastric bypass NEURO: Denies confusion, dizziness MSK: +chronic pain SKIN: Denies jaundice, pruritus Vitals: Vitals: Vital Signs Date Time Temp Pulse Resp B/P (MAP) Pulse Ox O2 Delivery O2 Flow Rate FiO2 12/20/21 14:22 84 20 136/74 (94) 98 Nasal Cannula 2.0 12/20/21 10:31 98.0 98.0 Labs: Labs: Laboratory Tests Test 12/20/21 10:57 12/20/21 11:40 White Blood Count 4.7 x10^3/uL (4.0-11.0) Red Blood Count 4.14 x10^6/uL (3.50-5.40) Hemoglobin 11.9 g/dL (12.0-15.5) Hematocrit 36.6 % (36.0-47.0) Mean Corpuscular Volume 88 fL (79-100) Mean Corpuscular Hemoglobin 29 pg (25-35) Mean Corpuscular Hemoglobin Concent 33 g/dL (31-37) Red Cell Distribution Width 14.2 % (11.5-14.5) Platelet Count 230 x10^3/uL (140-400) Neutrophils (%) (Auto) 71 % (31-73) Lymphocytes (%) (Auto) 20 % (24-48) Monocytes (%) (Auto) 7 % (0-9) Eosinophils (%) (Auto) 2 % (0-3) Basophils (%) (Auto) 0 % (0-3) Neutrophils # (Auto) 3.3 x10^3/uL (1.8-7.7) Lymphocytes # (Auto) 0.9 x10^3/uL (1.0-4.8) Monocytes # (Auto) 0.3 x10^3/uL (0.0-1.1) Eosinophils # (Auto) 0.1 x10^3/uL (0.0-0.7) Basophils # (Auto) 0.0 x10^3/uL (0.0-0.2) Sodium Level 143 mmol/L (136-145) Potassium Level 4.5 mmol/L (3.5-5.1) Chloride Level 106 mmol/L (98-107) Carbon Dioxide Level 28 mmol/L (21-32) Anion Gap 9 (6-14) Blood Urea Nitrogen 11 mg/dL (7-20) Creatinine 0.8 mg/dL (0.6-1.0) Estimated GFR (Cockcroft-Gault) 72.2 BUN/Creatinine Ratio 14 (6-20) Glucose Level 89 mg/dL (70-99) Calcium Level 8.7 mg/dL (8.5-10.1) Total Bilirubin 0.3 mg/dL (0.2-1.0) Aspartate Amino Transf (AST/SGOT) 16 U/L (15-37) Alanine Aminotransferase (ALT/SGPT) 16 U/L (14-59) Alkaline Phosphatase 104 U/L (46-116) Troponin I High Sensitivity 7 ng/L (4-50) Total Protein 6.5 g/dL (6.4-8.2) Albumin 3.4 g/dL (3.4-5.0) Albumin/Globulin Ratio 1.1 (1.0-1.7) Lipase 76 U/L (73-393) Urine Collection Type Unknown Urine Color (Auto) Colorless Urine Turbidity Clear Urine pH (Auto) 5.0 (<5.0-8.0) Urine Specific [place] 1.006 (1.000-1.030) Urine Protein (Auto) Negative mg/dL (Negative) Urine Glucose (Auto)(UA) Negative mg/dL (Negative) Urine Ketones (Auto) Negative mg/dL (Negative) Urine Blood (Auto) Negative (Negative) Urine Nitrite Negative (Negative) Urine Bilirubin (Auto) Negative (Negative) Urine Urobilinogen (Auto) Normal mg/dL (Normal) Urine Leukocyte Esterase (Auto) Negative (Negative) Urine RBC 0 /HPF (0-2) Urine WBC 1-4 /HPF (0-4) Urine Squamous Epithelial Cells Few /LPF Urine Bacteria Moderate /HPF (0-FEW) Urine Opiates Screen Neg (NEG) Urine Methadone Screen Neg (NEG) Urine Barbiturates Neg (NEG) Urine Phencyclidine Screen Neg (NEG) Urine Amphetamine/Methamphetamine Neg (NEG) Urine Benzodiazepines Screen Neg (NEG) Urine Cocaine Screen Neg (NEG) Urine Cannabinoids Screen Neg (NEG) Urine Ethyl Alcohol Neg (NEG) Allergies: Coded Allergies: Sulfa (Sulfonamide Antibiotics) (Verified Allergy, Intermediate, 03/02/21) Medications: Current Medications Medications (Trade) Dose Ordered Sig/Brennan Route PRN Reason Start Time Stop Time Status Last Admin Dose Admin Fentanyl Citrate (Fentanyl 2ml Vial) 50 mcg 1X ONCE IVP 12/20/21 11:30 12/20/21 11:31 DC 12/20/21 11:49 Sodium Chloride 500 ml @ 500 mls/hr 1X ONCE IV 12/20/21 11:45 12/20/21 12:44 DC 12/20/21 11:45 Iohexol (Omnipaque 300 Mg/ml) 75 ml 1X ONCE IV 12/20/21 12:15 12/20/21 12:16 DC 12/20/21 12:16 Fentanyl Citrate (Fentanyl 2ml Vial) 50 mcg 1X ONCE IVP 12/20/21 14:15 12/20/21 14:16 DC 12/20/21 14:15 Ondansetron HCl (Zofran) 4 mg 1X ONCE IVP 12/20/21 14:15 12/20/21 14:16 DC 12/20/21 14:16 Piperacillin Sod/ Tazobactam Sod 3.375 gm/Sodium Chloride 50 ml @ 100 mls/hr 1X ONCE IV 12/20/21 14:30 12/20/21 14:59 DC 12/20/21 14:30 Imaging: Imaging: CT A/P 12/20 report pending PE: GEN: NAD HEENT: Atraumatic, PERRL LUNGS: diminished, NC HEART: RRR ABD: quiet BS, obese, soft, LLQ discomfort EXTREMITY: No edema SKIN: No rashes, no jaundice NEURO/PSYCH: A & O 3 A/P: A/P: Sigmoid diverticulitis Mild anemia Occasional heartburn S/p gastric bypass Chronic loose stools, suspect IBS CRC screen - last attempt ~10 years ago, possibly w/ stricture S/p cholecystectomy -- Await official CT report. IV atbx and liquid diet for now. Check anemia parameters for completeness. Give acid-green chainer. Defer IVF and pain control to primary. Plan for outpt colonoscopy in ~2 months. KENDY VORA December 20, 2021 15:34
[2021-12-20] MEDS ORDERED: DICYCLOMINE HCL 10 MG CAPSULE PO PRN (16:15)
[2021-12-20 19:00] VITALS: BP 153/69
[2021-12-20] MEDS ORDERED: LEXAPRO20 MG PO (19:28)
[2021-12-20] MEDS ORDERED: ONDA-84 PO (19:28)
[2021-12-20] MEDS ORDERED: TIZA-75 PO (19:28)
[2021-12-20] MEDS ORDERED: TRAZ-123 PO (19:28)
[2021-12-20] MEDS ORDERED: HYOS0.1279 PO (19:28)
[2021-12-20] MEDS ORDERED: BUPR200T6 PO (19:28)
[2021-12-20] MEDS: ONDANSETRON PF 4 MG/2 ML VIAL. IVP PRN (20:17)
[2021-12-20] MEDS: fentaNYL PF VIAL 100 MCG/2 ML VIAL IVP PRN (20:18)
[2021-12-20] MEDS ORDERED: CIPROFLOXACIN 200MG PREMIX 100 ML IV SCH (21:00)
[2021-12-20 23:09] VITALS: BP 146/66
[2021-12-21] MEDS: fentaNYL PF VIAL 100 MCG/2 ML VIAL IVP PRN ×5 (01:42→21:09)
[2021-12-21] MEDS: ONDANSETRON PF 4 MG/2 ML VIAL. IVP PRN ×3 (02:46→16:59)
[2021-12-21 07:00] VITALS: BP 148/48
--- NOTE | 2021-12-21 07:46 | HP ---
DATE OF SERVICE: 12/20/2021 ADMIT DATE: 12/20/2021 CHIEF COMPLAINT: Left lower quadrant pain. HISTORY OF PRESENT ILLNESS: The patient is a pleasant, healthy 66-year-old female who presents with 10/10 left lower quadrant pain. She has associated nausea, has been occurring for several days. We did some imaging. It appears that she has diverticulitis. I discussed the case with ER physician. We are going to admit the patient with consultation to GI and for IV antibiotic therapy. PAST MEDICAL HISTORY: Diverticulitis, COPD, COVID, breast reduction. ALLERGIES: SULFA. FAMILY HISTORY: Coronary artery disease. SOCIAL HISTORY: She does not drink, smoke or take drugs. She is retired, used to work in [employer] with [employer] 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 MEDICATIONS: Reviewed. Please refer to the MRAD. REVIEW OF SYSTEMS: GENERAL: No history of weight change, weakness or fevers. SKIN: No bruising, hair changes or rashes. EYES: No blurred, double or loss of vision. NOSE AND THROAT: No history of nosebleeds, hoarseness or sore throat. HEART: No history of palpitations, chest pain or shortness of breath on exertion. LUNGS: Denies cough, hemoptysis, wheezing or shortness of breath. GASTROINTESTINAL: She complains of left lower quadrant pain. GENITOURINARY: No history of frequency, urgency, hesitancy or nocturia. NEUROLOGIC: Denies history of numbness, tingling, tremor or weakness. PSYCHIATRIC: No history of panic, anxiety or depression. ENDOCRINE: No history of heat or cold intolerance, polyuria or polydipsia. EXTREMITIES: Denies muscle weakness, joint pain, pain on walking or stiffness. PHYSICAL EXAMINATION: VITALS: Within normal limits and are stable. GENERAL: No apparent distress. Alert and oriented. HEENT: Normal cephalic atraumatic, external auditory canals are patent. EYES: Extraocular muscles are intact, pupils are equally round and reactive to light and accommodation. MUSCULOSKELETAL: Well developed, well nourished, good range of motion. ENDOCRINE: No thyromegaly was palpated. LYMPHATICS: No cervical chain or axillary nodes were noted. HEMATOPOIETIC: No bruising. NECK: Supple, no JVD, no thyromegaly was noted. LUNGS: Clear to auscultation in all lung bell without rhonchi or wheezing. HEART: RRR, S1, S2 present. Peripheral pulses intact, no obvious murmurs were noted. ABDOMEN: She has left lower quadrant pain. EXTREMITIES: Without any cyanosis, clubbing, or edema. Pedal pulses intact, Homans sign is negative. NEUROLOGIC: Normal speech, normal tone. A and O x 3, moves all extremities, no obvious focal deficits. PSYCHIATRIC: Normal affect, normal mood. Stable. SKIN: No ulcerations or rashes, good skin turgor, no jaundice. VASCULAR: Good capillary refill, neurovascular bundle appears to be intact. LABORATORY AND DIAGNOSTIC DATA: CT of the abdomen shows diverticulitis. White count is 4. ASSESSMENT AND PLAN: Diverticulitis. The patient has been admitted. We will start IV antibiotics, IV fluids, IV Cipro, IV metronidazole, IV proton pump inhibitors. Consult GI. Home meds. Deep venous thrombosis prophylaxis. Full code. JEANNE DR: Alessandra TID: [id number]
--- NOTE | 2021-12-21 07:47 | RAD ---
CT ABDOMEN+PELVIS W History: Diverticulitis. Left lower quadrant severe pain. Comparison: 03/02/2021 CT abdomen. Technique: CT abdomen and pelvis with intravenous contrast. Findings: Coronary artery calcifications. No airspace consolidation in the lung bases. The liver is unremarkable. Status post cholecystectomy. The common bile duct measures 7 mm diameter. Mild pancreatic atrophy. The spleen, adrenal glands, and kidneys are unremarkable. The bladder is within normal limits. Status post hysterectomy. The stomach demonstrates postsurgical changes from gastric bypass. The antecolic alimentary limb is n ormal in appearance. The pancreaticobiliary limb is unremarkable. The jejunojejunostomy appears paten t. No evidence of bowel obstruction. The appendix is normal. There is colonic diverticulosis. Wall th ickening and pericolonic inflammatory changes at the sigmoid colon. No free fluid or free air is iden tified. Atherosclerotic calcification of the aorta and iliac arteries. No aneurysm. No adenopathy. Soft tissu es are unremarkable. No acute osseous abnormality. Impression: 1. Acute uncomplicated sigmoid diverticulitis. ------ Exposure: One or more of the following individualized dose reduction techniques were utilized for thi s examination: 1. Automated exposure control 2. Adjustment of the mA and/or kV according to patient size 3. Use of iterative reconstruction technique. Electronically signed by: Patel Snyder MD (12/20/2021 12:36 PM) [id number]
[2021-12-21] MEDS: PANTOPRAZOLE 40 MG TABLET.DR. PO SCH ×2 (09:00→09:16)
[2021-12-21 09:20] LABS: HEMATOCRIT 35.9 % (36.0-47.0); HEMOGLOBIN 11.7 g/dL (12.0-15.5); RED BLOOD COUNT 4.04 x10^6/uL (3.50-5.40); RED CELL DISTRIBUTION WIDTH 14.4 % (11.5-14.5); WHITE BLOOD COUNT 4.7 x10^3/uL (4.0-11.0)
[2021-12-21 09:42] LABS: CALCIUM 8.8 mg/dL (8.5-10.1); CREATININE 0.9 mg/dL (0.6-1.0); POTASSIUM 3.9 mmol/L (3.5-5.1)
--- NOTE | 2021-12-21 10:20 | PDOC ---
Date of Service: DATE: 12/21/21 TIME: 10:12 Subjective: Subjective: Has about the same amount of pain - meds help. Tolerating clears. Passing flatus but no stool. Later asks if she could have dinner tonight. Objective: Objective: D/w nurse - allergies not updated per ER - when pt arrived to room she reported allergy to Cipro - "muscle soreness" - Cipro not given. Vital Signs: Vital Signs Date Time Temp Pulse Resp B/P (MAP) Pulse Ox O2 Delivery O2 Flow Rate FiO2 12/21/21 07:17 16 Nasal Cannula 3.0 12/21/21 07:00 98.3 57 148/48 (81) 97 98.3 Labs: Laboratory Tests Test 12/20/21 10:57 12/20/21 11:40 12/20/21 15:00 12/21/21 08:40 White Blood Count 4.7 x10^3/uL 4.7 x10^3/uL Red Blood Count 4.14 x10^6/uL 4.04 x10^6/uL Hemoglobin 11.9 g/dL 11.7 g/dL Hematocrit 36.6 % 35.9 % Mean Corpuscular Volume 88 fL 89 fL Mean Corpuscular Hemoglobin 29 pg 29 pg Mean Corpuscular Hemoglobin Concent 33 g/dL 33 g/dL Red Cell Distribution Width 14.2 % 14.4 % Platelet Count 230 x10^3/uL 195 x10^3/uL Neutrophils (%) (Auto) 71 % Lymphocytes (%) (Auto) 20 % Monocytes (%) (Auto) 7 % Eosinophils (%) (Auto) 2 % Basophils (%) (Auto) 0 % Neutrophils # (Auto) 3.3 x10^3/uL Lymphocytes # (Auto) 0.9 x10^3/uL Monocytes # (Auto) 0.3 x10^3/uL Eosinophils # (Auto) 0.1 x10^3/uL Basophils # (Auto) 0.0 x10^3/uL Sodium Level 143 mmol/L 146 mmol/L Potassium Level 4.5 mmol/L 3.9 mmol/L Chloride Level 106 mmol/L 109 mmol/L Carbon Dioxide Level 28 mmol/L 26 mmol/L Anion Gap 9 11 Blood Urea Nitrogen 11 mg/dL 7 mg/dL Creatinine 0.8 mg/dL 0.9 mg/dL Estimated GFR (Cockcroft-Gault) 72.2 63.0 BUN/Creatinine Ratio 14 Glucose Level 89 mg/dL 167 mg/dL Calcium Level 8.7 mg/dL 8.8 mg/dL Iron Level 58 ug/dL Total Iron Binding Capacity 356 ug/dL Iron Saturation 16 % Total Bilirubin 0.3 mg/dL Aspartate Amino Transf (AST/SGOT) 16 U/L Alanine Aminotransferase (ALT/SGPT) 16 U/L Alkaline Phosphatase 104 U/L Troponin I High Sensitivity 7 ng/L Total Protein 6.5 g/dL Albumin 3.4 g/dL Albumin/Globulin Ratio 1.1 Lipase 76 U/L Urine Collection Type Unknown Urine Color (Auto) Colorless Urine Turbidity Clear Urine pH (Auto) 5.0 Urine Specific [place] 1.006 Urine Protein (Auto) Negative mg/dL Urine Glucose (Auto)(UA) Negative mg/dL Urine Ketones (Auto) Negative mg/dL Urine Blood (Auto) Negative Urine Nitrite Negative Urine Bilirubin (Auto) Negative Urine Urobilinogen (Auto) Normal mg/dL Urine Leukocyte Esterase (Auto) Negative Urine RBC 0 /HPF Urine WBC 1-4 /HPF Urine Squamous Epithelial Cells Few /LPF Urine Bacteria Moderate /HPF Urine Opiates Screen Neg Urine Methadone Screen Neg Urine Barbiturates Neg Urine Phencyclidine Screen Neg Urine Amphetamine/Methamphetamine Neg Urine Benzodiazepines Screen Neg Urine Cocaine Screen Neg Urine Cannabinoids Screen Neg Urine Ethyl Alcohol Neg Lactic Acid Level 0.5 mmol/L PE: GEN: NAD LUNGS: diminished, NC 3L HEART: RRR ABD: quiet BS, obese, soft, LLQ discomfort NEURO/PSYCH: A & O 3 A/P: Sigmoid diverticulitis Mild anemia - not iron deficient S/p gastric bypass CRC screen - last attempt ~10 years ago, possibly w/ stricture -- Adjust antibiotics w/ updated allergy information. Can advance diet when pain has improved - keep to clears for now, can re-eval later today. IVF per primary. Outpt colonoscopy. Justicifation of Admission Dx: Justifications for Admission: Justification of Admission Dx: Yes KENDY VORA December 21, 2021 10:20
[2021-12-21 11:00] VITALS: BP 142/64
[2021-12-21] MEDS ORDERED: IV NORMAL SALINE 1000ML BAG 1,000 ML IV SCH ×2 (11:15→11:30)
[2021-12-21] MEDS ORDERED: PIPERACILLIN/TAZOBACTAM 2.25 GM in IV NORMAL SALINE 50ML 50 ML IV SCH (12:00)
[2021-12-21] MEDS: IV NORMAL SALINE 1000ML BAG 1,000 ML IV SCH ×2 (12:00→21:08)
[2021-12-21] MEDS: PIPERACILLIN/TAZOBACTAM 3.375 GM in IV NORMAL SALINE 50ML 50 ML IV SCH ×2 (12:16→17:00)
[2021-12-21] MEDS ORDERED: CYANOCOBALAMIN (VITAMIN B-12) 1,000 MCG/ML VIAL. IM ONE (12:30)
[2021-12-21] MEDS ORDERED: DICYCLOMINE HCL 10 MG CAPSULE PO PRN (13:00)
[2021-12-21] MEDS: LACTOBACILLUS RHAMNOSUS GG 1 CAPSULE. PO SCH ×2 (13:57→21:09)
--- NOTE | 2021-12-21 14:56 | PDOC ---
[employer] PROGRESS NOTE Date of Service DOS: DATE: 12/21/21 TIME: 14:54 Chief Complaint Chief Complaint Diverticulitis. The patient has been admitted. We will start IV antibiotics, IV fluids, Swith to IV Zosyn; ADAT Consult GI. Home meds. Deep venous thrombosis prophylaxis. Full code. History of Present Illness History of Present Illness 12/21 Patient evaluated examined at bedside. Having some ongoing pain but slowly improving. Antibiotics switched to IV Zosyn given Cipro allergy. GI recommendations reviewed. Continue clear liquids. Discussed with bedside RN. Vitals/I&O Vitals/I&O: Vital Signs Date Time Temp Pulse Resp B/P (MAP) Pulse Ox O2 Delivery O2 Flow Rate FiO2 12/21/21 11:29 19 94 Nasal Cannula 2.0 12/21/21 11:00 98.1 57 142/64 (90) 98.1 Physical Exam General: Alert, Oriented X3, Cooperative Heart: Regular rate, Normal S1, Normal S2 Lungs: Clear Abdomen: Other (TTP throughout) Extremities: No edema, Normal pulses Skin: No significant lesion Labs Labs: Laboratory Tests Test 12/20/21 15:00 12/21/21 08:40 Lactic Acid Level 0.5 mmol/L (0.4-2.0) White Blood Count 4.7 x10^3/uL (4.0-11.0) Red Blood Count 4.04 x10^6/uL (3.50-5.40) Hemoglobin 11.7 g/dL (12.0-15.5) Hematocrit 35.9 % (36.0-47.0) Mean Corpuscular Volume 89 fL (79-100) Mean Corpuscular Hemoglobin 29 pg (25-35) Mean Corpuscular Hemoglobin Concent 33 g/dL (31-37) Red Cell Distribution Width 14.4 % (11.5-14.5) Platelet Count 195 x10^3/uL (140-400) Sodium Level 146 mmol/L (136-145) Potassium Level 3.9 mmol/L (3.5-5.1) Chloride Level 109 mmol/L (98-107) Carbon Dioxide Level 26 mmol/L (21-32) Anion Gap 11 (6-14) Blood Urea Nitrogen 7 mg/dL (7-20) Creatinine 0.9 mg/dL (0.6-1.0) Estimated GFR (Cockcroft-Gault) 63.0 Glucose Level 167 mg/dL (70-99) Calcium Level 8.8 mg/dL (8.5-10.1) Assessment and Plan Assessmemt and Plan Problems Medical Problems: (1) Diverticulitis Status: Acute Comment Review of Relevant I have reviewed the following items jacque (where applicable) has been applied. Medications: Current Medications Medications (Trade) Dose Ordered Sig/Brennan Route PRN Reason Start Time Stop Time Status Last Admin Dose Admin Metronidazole 100 ml @ 100 mls/hr Q8HRS IV 12/20/21 22:00 12/21/21 10:20 DC 12/21/21 06:00 Dicyclomine HCl (Bentyl) 10 mg TID PRN PO abd cramps 12/20/21 16:15 12/21/21 12:59 DC 12/21/21 02:59 Pantoprazole Sodium (Protonix) 40 mg DAILY PO 12/21/21 07:30 12/21/21 09:00 Piperacillin Sod/ Tazobactam Sod 3.375 gm/Sodium Chloride 50 ml @ 100 mls/hr Q6HRS IV 12/21/21 12:00 12/21/21 12:16 Sodium Chloride 1,000 ml @ 100 mls/hr Q10H IV 12/21/21 12:00 12/21/21 12:00 Cyanocobalamin (Vitamin B-12 Inj) 1,000 mcg 1X ONCE IM 12/21/21 12:30 12/21/21 12:31 DC 12/21/21 13:57 Lactobacillus Rhamnosus (Culturelle) 1 cap BID PO 12/21/21 13:00 12/21/21 13:57 Justifications for Admission Other Justification TL BOYLE MD December 21, 2021 14:55
[2021-12-21 15:00] VITALS: BP 148/59
--- NOTE | 2021-12-21 16:33 | NUR ---
SS following for discharge planning. SS reviewed pt chart and discussed with pt RN. Pt is from home and is currently requiring oxygen at two liters nasal canula. GI following. Pt on IV Zosyn. Pt on Full liquid diet. SS will continue to follow for discharge planning.
[2021-12-21 19:00] VITALS: BP 147/62
[2021-12-21] MEDS ORDERED: MENT118G TP (22:01)
[2021-12-21] MEDS ORDERED: MENTHOL/CAMPHOR 0.5%/0.5% LOTION 222ML BOTTLE. TP PRN (22:15)
[2021-12-21] MEDS ORDERED: HYDROcodone/APAP 5/325MG 1 TAB TABLET PO PRN (22:15)
[2021-12-21 23:00] VITALS: BP 140/61
[2021-12-21] MEDS ORDERED: traZODone 100 MG TABLET. PO PRN (23:00)
[2021-12-21] MEDS: tiZANidine 4 MG TABLET. PO SCH (23:33)
[2021-12-22] MEDS: PIPERACILLIN/TAZOBACTAM 3.375 GM in IV NORMAL SALINE 50ML 50 ML IV SCH ×5 (00:39→23:58)
[2021-12-22 03:00] VITALS: BP 123/50
[2021-12-22] MEDS: fentaNYL PF VIAL 100 MCG/2 ML VIAL IVP PRN ×2 (04:21→08:30)
[2021-12-22] MEDS: ONDANSETRON PF 4 MG/2 ML VIAL. IVP PRN ×3 (04:22→22:54)
[2021-12-22 07:00] VITALS: BP 94/64
[2021-12-22] MEDS: METHYL SALICYLATE/MENTHOL TOPICAL CREAM 57GM TUBE. TP SCH ×2 (08:26→22:43)
[2021-12-22] MEDS: PANTOPRAZOLE 40 MG TABLET.DR. PO SCH (08:30)
[2021-12-22] MEDS: buPROPion SR 100 MG TABLET.SA. PO SCH (08:30)
[2021-12-22] MEDS: LACTOBACILLUS RHAMNOSUS GG 1 CAPSULE. PO SCH ×2 (08:30→22:44)
[2021-12-22] MEDS: CITALOPRAM 20 MG TABLET. PO SCH (08:31)
[2021-12-22] MEDS: IV NORMAL SALINE 1000ML BAG 1,000 ML IV SCH ×2 (08:32→17:47)
--- NOTE | 2021-12-22 09:07 | PDOC ---
Date of Service: DATE: 12/22/21 TIME: 08:59 Subjective: Subjective: Neck and back pain exacerbated by hospital bed. LLQ pain radiating around to lower back - abdominal pain is better overall but not resolved. Taking some full liquids. Had watery/mucousy stool overnight - some incontinence which is not a new problem (can happen with urgency or be a surprise). Wonders about going home but needing IV pain meds. Objective: Objective: B12 low - s/p inj yesterday. Vital Signs: Vital Signs Date Time Temp Pulse Resp B/P (MAP) Pulse Ox O2 Delivery O2 Flow Rate FiO2 12/22/21 08:30 19 Nasal Cannula 2.0 12/22/21 07:00 97.8 77 94/64 (24) 92 97.8 Labs: CULTURE URINE Final GREATER THAN 100,000 CFU/ML GRAM NEGATIVE RODS on 12/21/21 at 1024. FINAL ID=ESCHERICHIA COLI Testing performed by [address] [id number] director enterprise data architecture: Es Burt MD Organism 1 ESCHERICHIA COLI PE: GEN: bit uncomfortable sitting on edge of bed LUNGS: CTAB HEART: RRR ABD: obese, LLQ discomfort, quiet BS NEURO/PSYCH: A & O 3, bit tearful at times A/P: Sigmoid diverticulitis Diarrhea/incontinence Mild anemia - not iron deficient S/p gastric bypass CRC screen - last attempt ~10 years ago, possibly w/ stricture UTI, chronic pain - per primary -- Slow improvement - seems chronic pain is complicating the acute issue - consider interval CT if abd pain not improved tomorrow. Outpt colonoscopy. Monitor stools - consider checking C Diff, enteric panel if indicated - she indicates this is more of a chronic issue. Long-term might try fiber. Would need to transition to PO pain control before considering DC - doesn't seem ready. Does ask for pain patch for neck - will order and then defer to primary. Nurse called this afternoon - pt wants to try mashed potatoes and gravy which doesn't really go along w/ ongoing complaints - gave okay to cautiously try. Justicifation of Admission Dx: Justifications for Admission: Justification of Admission Dx: Yes KENDY VORA December 22, 2021 09:07
[2021-12-22] MEDS ORDERED: DICYCLOMINE HCL 10 MG CAPSULE PO PRN (09:15)
[2021-12-22] MEDS ORDERED: LIDOCAINE (700MG/PATCH) PATCH. TD SCH (10:00)
[2021-12-22] MEDS ORDERED: MORPHINE SULFATE 2 MG/ML INJ. IVP PRN (10:30)
[2021-12-22 11:00] VITALS: BP 166/66
[2021-12-22] MEDS: LIDOCAINE (700MG/PATCH) PATCH. TD SCH (11:08)
[2021-12-22] MEDS: HYDROcodone/APAP 5/325MG 1 TAB TABLET PO PRN ×3 (12:48→22:44)
--- NOTE | 2021-12-22 13:11 | NUR ---
SS following up with discharge planning. SS reviewed pt chart and discussed with pt RN. Pt is currently requiring oxygen at two liters nasal canula. GI following. Pt on IV Zosyn. SS will continue to follow for discharge planning.
[2021-12-22 15:00] VITALS: BP 130/64
--- NOTE | 2021-12-22 16:59 | PDOC ---
[employer] PROGRESS NOTE Date of Service DOS: DATE: 12/22/21 TIME: 16:58 Chief Complaint Chief Complaint Diverticulitis. The patient has been admitted. We will start IV antibiotics, IV fluids, Swith to IV Zosyn; ADAT Consult GI. Home meds. Deep venous thrombosis prophylaxis. Full code. History of Present Illness History of Present Illness 12/22 Patient evaluated examined at bedside. Up in chair. He was complaining of upper back and neck pain related to her fibromyalgia. Was also having some abdominal pain still. Did have episode of diarrhea overnight. However said she does feel improved from admission. Continuing IV antibiotics. GI recommendations reviewed. Continue liquid diet advance as tolerated. Discussed with bedside RN. 12/21 Patient evaluated examined at bedside. Having some ongoing pain but slowly improving. Antibiotics switched to IV Zosyn given Cipro allergy. GI recomm endations reviewed. Continue clear liquids. Discussed with bedside RN. Vitals/I&O Vitals/I&O: Vital Signs Date Time Temp Pulse Resp B/P (MAP) Pulse Ox O2 Delivery O2 Flow Rate FiO2 12/22/21 16:45 18 Nasal Cannula 3.0 12/22/21 15:00 98.3 51 130/64 (86) 98 98.3 I & O 12/21/21 12/21/21 12/22/21 15:00 23:00 07:00 Intake Total 550 ml 1000 ml 50 ml Balance 550 ml 1000 ml 50 ml Physical Exam General: Alert, Oriented X3, Cooperative Heart: Regular rate, Normal S1, Normal S2 Lungs: Clear Abdomen: Other (TTP throughout) Extremities: No edema, Normal pulses Skin: No significant lesion Assessment and Plan Assessmemt and Plan Problems Medical Problems: (1) Diverticulitis Status: Acute Comment Review of Relevant I have reviewed the following items jacque (where applicable) has been applied. Medications: Current Medications Medications (Trade) Dose Ordered Sig/Brennan Route PRN Reason Start Time Stop Time Status Last Admin Dose Admin Tizanidine HCl (Zanaflex) 2 mg QHS PO 12/21/21 23:00 12/21/21 23:33 Trazodone HCl (Desyrel) 100 mg PRN QHS PRN PO INSOMNIA, MAY REPEAT X1 12/21/21 23:00 12/21/21 23:32 Bupropion HCl (Wellbutrin Sr) 300 mg DAILY PO 12/22/21 09:00 12/22/21 08:30 Citalopram Hydrobromide (CeleXA) 40 mg DAILY PO 12/22/21 09:00 12/22/21 08:31 Menthol/Methyl Salicylate (Bengay Greaseless Cream) 1 rick BID TP 12/22/21 09:00 12/22/21 08:26 Lidocaine (Lidoderm) 2 patch DAILY TD 12/22/21 10:30 12/22/21 11:08 Acetaminophen/ Hydrocodone Bitart (Lortab 5/325) 1 tab PRN Q4HRS PRN PO PAIN 12/22/21 10:30 12/22/21 16:45 Justifications for Admission Other Justification TL BOYLE MD December 22, 2021 16:59
[2021-12-22 19:00] VITALS: BP 105/53
[2021-12-22] MEDS ORDERED: PATCH REMOVAL. MC SCH (21:00)
[2021-12-22] MEDS: tiZANidine 4 MG TABLET. PO SCH (22:48)
[2021-12-22 23:07] VITALS: BP 119/77
[2021-12-23 03:00] VITALS: BP 111/51
[2021-12-23 03:37] LABS: HEMATOCRIT 33.1 % (36.0-47.0); HEMOGLOBIN 10.5 g/dL (12.0-15.5); RED BLOOD COUNT 3.73 x10^6/uL (3.50-5.40); RED CELL DISTRIBUTION WIDTH 13.9 % (11.5-14.5); WHITE BLOOD COUNT 3.7 x10^3/uL (4.0-11.0)
[2021-12-23] MEDS: HYDROcodone/APAP 5/325MG 1 TAB TABLET PO PRN ×2 (03:53→08:26)
[2021-12-23 04:42] LABS: CALCIUM 8.2 mg/dL (8.5-10.1); CREATININE 0.8 mg/dL (0.6-1.0); GFR 72.2
[2021-12-23] MEDS: PIPERACILLIN/TAZOBACTAM 3.375 GM in IV NORMAL SALINE 50ML 50 ML IV SCH ×2 (05:42→12:00)
[2021-12-23] MEDS: IV NORMAL SALINE 1000ML BAG 1,000 ML IV SCH (05:43)
[2021-12-23 07:00] VITALS: BP 123/59
[2021-12-23] MEDS: CITALOPRAM 20 MG TABLET. PO SCH (08:27)
[2021-12-23] MEDS: PANTOPRAZOLE 40 MG TABLET.DR. PO SCH (08:27)
[2021-12-23] MEDS: buPROPion SR 100 MG TABLET.SA. PO SCH (08:27)
[2021-12-23] MEDS: LACTOBACILLUS RHAMNOSUS GG 1 CAPSULE. PO SCH (08:28)
[2021-12-23] MEDS: METHYL SALICYLATE/MENTHOL TOPICAL CREAM 57GM TUBE. TP SCH (08:29)
[2021-12-23] MEDS: LIDOCAINE (700MG/PATCH) PATCH. TD SCH (08:29)
[2021-12-23] MEDS: ONDANSETRON PF 4 MG/2 ML VIAL. IVP PRN (08:35)
--- NOTE | 2021-12-23 09:46 | PDOC ---
Date of Service: DATE: 12/23/21 TIME: 09:31 Subjective: Subjective: Slowly getting better. Would like to go home. Pain is not resolved but improved. Tolerating full liquids + mashed potatoes. Off IV pain meds - taking PO. Diarrhea better - not as "forceful" and now w/ some form ("curly Qs"). Objective: Vital Signs: Vital Signs Date Time Temp Pulse Resp B/P (MAP) Pulse Ox O2 Delivery O2 Flow Rate FiO2 12/23/21 08:00 Nasal Cannula 2.0 12/23/21 07:00 98.2 58 18 123/59 (80) 95 98.2 Labs: Laboratory Tests Test 12/23/21 03:20 White Blood Count 3.7 x10^3/uL Red Blood Count 3.73 x10^6/uL Hemoglobin 10.5 g/dL Hematocrit 33.1 % Mean Corpuscular Volume 89 fL Mean Corpuscular Hemoglobin 28 pg Mean Corpuscular Hemoglobin Concent 32 g/dL Red Cell Distribution Width 13.9 % Platelet Count 179 x10^3/uL Sodium Level 144 mmol/L Potassium Level 4.0 mmol/L Chloride Level 111 mmol/L Carbon Dioxide Level 27 mmol/L Anion Gap 6 Blood Urea Nitrogen 4 mg/dL Creatinine 0.8 mg/dL Estimated GFR (Cockcroft-Gault) 72.2 Glucose Level 89 mg/dL Calcium Level 8.2 mg/dL PE: GEN: NAD - looks more comfortable today LUNGS: CTAB HEART: RRR ABD: obese, BS+, less LLQ discomfort NEURO/PSYCH: A & O 3 A/P: Sigmoid diverticulitis - Cipro allergy, has been on Zosyn Diarrhea - better Mild anemia - not iron deficient S/p gastric bypass, B12 deficient s/p inj UTI, chronic pain -- Gradual improvement. Seems reasonable to slowly advance diet (asked nurse to confirm she'd get mashed potatoes with lunch) and DC to home on PO atbx - d/w hospitalist. Probably a good idea to continue Bentyl or similar. Our office will call to set up follow-up to discuss colonoscopy - might be beneficial to try to get records from past colonoscopy in [place] (reportedly could not pass pediatric scope) and barium enema. Justicifation of Admission Dx: Justifications for Admission: Justification of Admission Dx: Yes KENDY VORA December 23, 2021 09:46
[2021-12-23 10:50] VITALS: BP 135/56
[2021-12-23] MEDS ORDERED: AMOX1TAB61 PO (11:49)
[2021-12-23] MEDS ORDERED: HYDR-2761 PO (11:49)
[2021-12-23] MEDS ORDERED: PANT40TA77 PO (11:49)
--- NOTE | 2021-12-23 11:53 | EKG ---
[facility] [address] [place] [address] Test Date: 2021-12-20 Test Time: 10:38:43 Pat Name: CARA KELLOGG Department: Room: [facility] 1 Gender: F Leaf Binner: : 1955 Requested By: RADHA MORAES Order Number: [id number] Reading MD: Byron Long Measurements Intervals [place] Rate: 62 P: 43 RI: 156 QRS: -5 QRSD: 80 T: 8 QT: 426 QTc: 435 Interpretive Statements SINUS RHYTHM LEFTWARD AXIS Electronically Signed On 12-24-2021 10:48:56 CDT by Byron Long
[2021-12-23] MEDS ORDERED: FLUC150T PO (12:34)
== END 2021-12-23 12:20 | disposition home or self-care (01) | DRG 392 ==
LOC: ER 10:02 → 5 NORTH 14:20
PROVIDERS: ADMIT Internal Medicine; ATTEND Internal Medicine
DX: K57.32 Diverticulitis of large intestine without perforation or abscess without bleeding (principal); N39.0 Urinary tract infection, site not specified; D64.9 Anemia, unspecified; G47.33 Obstructive sleep apnea (adult) (pediatric); G89.29 Other chronic pain; J44.9 Chronic obstructive pulmonary disease, unspecified; M35.00 Sjogren syndrome, unspecified; M79.7 Fibromyalgia; R32 Unspecified urinary incontinence; T36.0X5A Adverse effect of penicillins, initial encounter; Z82.49 Family history of ischemic heart disease and other diseases of the circulatory system; Z88.1 Allergy status to other antibiotic agents; Z90.49 Acquired absence of other specified parts of digestive tract; Z90.710 Acquired absence of both cervix and uterus; Z98.84 Bariatric surgery status; Z88.2 Allergy status to sulfonamides
CPT/HCPCS: 36415; 74177; 80048; 80053; 80307; 81001; 82607; 83540; 83550; 83605; 83690; 84484; 85025; 85027; 87077; 87086; 87186; 93005; 96365; 96375; 96376; J2405; J2543; J3010; J3420; J3490; J7030; J7040; Q9967; 99285-25; G0378